=== PATIENT | male | born 1945 | race Caucasian/White ===

== ENCOUNTER 2020-06-27 07:49 | Day surgery (SDC) | payer OTHER ==
[2020-06-21 08:19] LABS: BASOPHILS % (AUTO) 0.3 % (0-1); EOSINOPHILS # (AUTO) 0.1 X10'3 (0-0.9); EOSINOPHILS % (AUTO) 0.9 % (0-6); HEMATOCRIT 43.4 % (42.0-52.0); HEMOGLOBIN 14.5 g/dl (14.0-17.9); LYMPHOCYTES # (AUTO) 1.6 X10'3 (1.1-4.8); LYMPHOCYTES % (AUTO) 25.9 % (21-51); MEAN CORPUSCULAR HEMOGLOBIN 33.3 PG (27.0-31.0); MEAN CORPUSCULAR HGB CONC 33.5 g/dL (33.0-36.5); MEAN CORPUSCULAR VOLUME 99.4 FL (78-98); MEAN PLATELET VOLUME 9.2 FL (7.4-10.4); MONOCYTES % (AUTO) 15.7 % (2-12); NEUTROPHILS # (AUTO) 3.6 X10'3 (1.8-7.7); NEUTROPHILS % (AUTO) 57.2 % (42-75); PLATELET COUNT 196 X10'3 (140-440); RED BLOOD COUNT 4.36 X10'6 (4.70-6.10); RED CELL DISTRIBUTION WIDTH 12.9 % (11.5-14.5); WHITE BLOOD COUNT 6.2 X10'3 (4.5-11.0)
[2020-06-21 08:31] LABS: ALANINE AMINOTRANSFERASE 29 U/L (12-78); ALBUMIN 3.6 G/DL (3.4-5.0); ALBUMIN/GLOBULIN RATIO 1.1 (1.1-1.5); ALKALINE PHOSPHATASE 77 IU/L (46-116); ANION GAP 7 (8-16); ASPARTATE AMINO TRANSFERASE 19 U/L (10-37); BILIRUBIN,TOTAL 0.6 MG/DL (0.1-1.0); BLOOD UREA NITROGEN 16 MG/DL (7-18); BUN/CREATININE RATIO 16.8 (5.4-32.0); CALCIUM 8.8 MG/DL (8.5-10.1); CHLORIDE 110 MMOL/L (99-107); CREATININE 0.95 MG/DL (0.60-1.10); GLUCOSE 118 MG/DL (70-104); POTASSIUM 4.7 MMOL/L (3.5-5.1); SODIUM 146 MMOL/L (135-145); TOTAL CARBON DIOXIDE 28.8 MMOL/L (24-32); TOTAL PROTEIN 6.9 G/DL (6.4-8.2); eGFR 78 ML/MIN
[2020-06-21 08:33] LABS: PARTIAL THROMBOPLASTIN TIME 26 SECONDS (22-32)
[2020-06-21 09:33] LABS: PLATELET ESTIMATE NORMAL; TOTAL CELLS COUNTED 100
[~2020-06-27] VITALS: Ht 182.9 cm; Wt 95.4 kg
[2020-06-27] VITALS (10 sets, daily range): BP systolic 105–140; BP diastolic 52–86
[2020-06-27] MEDS ORDERED: nitroGLYCERIN 0.4mg SUBLingual tab SL PRN (08:10)
[2020-06-27] MEDS ORDERED: LORazepam 0.5 MG tablet PO PRN (08:10)
[2020-06-27] MEDS ORDERED: diphenhydrAMINE 25mg capsule PO PRN (08:10)
[2020-06-27] MEDS ORDERED: normal saline 1,000 ML IV SCH (08:10)
[2020-06-27] MEDS ORDERED: NITR0.4T51 SL (08:22)
[2020-06-27] MEDS ORDERED: CLOP75TA15 PO (08:22)
[2020-06-27] MEDS ORDERED: ATOR80TA PO (08:22)
[2020-06-27] MEDS ORDERED: LIDOcaine 1% (10mg/ml)w/preservative injection 20ml MDV ONE (10:30)
[2020-06-27] MEDS ORDERED: fentaNYL/PF 50MCG/1 ML 2ML syringe ONE (10:30)
[2020-06-27] MEDS ORDERED: midazolam 1 mg/ML 2ml injection ONE (10:30)
[2020-06-27] MEDS ORDERED: iohexol 350MG/ML 100ml bottle IV ONE (10:30)
[2020-06-27] MEDS ORDERED: iohexol 350 MG/ML 50ML vial IV ONE (10:30)
--- NOTE | 2020-06-27 12:30 | NUR ---
Pt ate 100% of lunch tray. Drank 250ml oral fluid intake. Pt site stable, denies pain at site, denies cp. Will continue to monitor.
[2020-06-27] MEDS ORDERED: ondansetron/PF 4mg/2ml inj IV PRN (12:35)
[2020-06-27] MEDS ORDERED: HYDROcodone/acetaminophen 10/325mg tab PO PRN (12:35)
[2020-06-27] MEDS ORDERED: proCHLORperazine 10 MG/2 ml inj IV PRN (12:35)
[2020-06-27] MEDS ORDERED: HYDROcodone/acetaminophen 5mg/325mg tablet PO PRN (12:35)
[2020-06-27] MEDS ORDERED: OXAZEpam 15mg capsule PO PRN (12:35)
[2020-06-27] MEDS ORDERED: acetaminophen 325mg tablet PO PRN (12:35)
--- NOTE | 2020-06-27 14:05 | NUR ---
Pt voided 450ml yellow, clear
== END 2020-06-27 18:00 | disposition home or self-care (01) ==
LOC: SSTAY O 07:49
PROVIDERS: ATTEND Internal Medicine Cardiovascular Disease
DX: R94.39 Abnormal result of other cardiovascular function study (principal); I25.119 Atherosclerotic heart disease of native coronary artery with unspecified angina pectoris; R06.02 Shortness of breath; E78.5 Hyperlipidemia, unspecified; Z86.73 Personal history of transient ischemic attack (TIA), and cerebral infarction without residual deficits; Z95.5 Presence of coronary angioplasty implant and graft; Z87.891 Personal history of nicotine dependence; Z88.1 Allergy status to other antibiotic agents; Z79.01 Long term (current) use of anticoagulants; Z79.899 Other long term (current) drug therapy
CPT/HCPCS: 36415; 80053; 83880; 85025; 85610; 85730; 93005; 93458; 99152; C1760; C1769; J1644; J2001; J2250; J3010; J7030; Q0163; Q9967; 85007; 99153; A4620; A6258